=== PATIENT | female | born 1945 | race Caucasian/White ===

== ENCOUNTER 2018-03-29 07:01 | Emergency (ER) | payer MEDICARE, BC ==
[2018-03-29] MEDS ORDERED: Ondansetron 4 MG/2 ML SDV IVPUSH ONE (07:35)
[2018-03-29] MEDS ORDERED: Meclizine 25 MG Tab PO ONE ×2 (07:43→09:17)
[2018-03-29] MEDS ORDERED: Sodium Chloride 0.9% 1,000 ML IV SCH (07:45)
--- NOTE | 2018-03-29 07:48 | EDM.PDOC ---
ED HPI GENERAL MEDICAL PROBLEM - General Chief Complaint: Gastrointestinal Problem Stated Complaint: DIZZY VOMITING Time Seen by Provider: 03/29/18 07:44 Source of Information: Reports: Patient History Limitations: Reports: No Limitations - History of Present Illness INITIAL COMMENTS - FREE TEXT/NARRATIVE: pt woke up yesterday and she was nauseated and she vomited a number of times. She did have some loose stools. She did note a small amount of blood in the one bowel movement and it has been normal since that time. Onset: Today, Sudden Duration: Hour(s): Location: Reports: Head, Other (pt is having vertigo. ) Associated Symptoms: Reports: Nausea/Vomiting, Other (vertigo.) - Related Data Allergies Allergy/AdvReac Type Severity Reaction Status Date / Time No Known Allergies Allergy Verified 03/29/18 07:25 Home Meds: Home Meds Metoprolol Succinate 25 mg PO DAILY 03/29/18 [History] Multivitamin [Multivitamins] 1 tab PO DAILY 03/29/18 [History] Omeprazole 20 mg PO ASDIRECTED 03/29/18 [History] Simvastatin [Zocor] 10 mg PO DAILY 03/29/18 [History] Past Medical History Cardiovascular History: Reports: High Cholesterol, Hypertension Gastrointestinal History: Reports: GERD Musculoskeletal History: Reports: Arthritis - Past Surgical History HEENT Surgical History: Reports: Tonsillectomy GI Surgical History: Reports: Colonoscopy Social & Family History - Tobacco Use Smoking Status *Q: Never Smoker - Caffeine Use Caffeine Use: Reports: Tea - Recreational Drug Use Recreational Drug Use: No ED ROS GENERAL - Review of Systems Review Of Systems: See Below Constitutional: Reports: No Symptoms HEENT: Reports: No Symptoms Respiratory: Reports: No Symptoms Cardiovascular: Reports: No Symptoms Endocrine: Reports: No Symptoms GI/Abdominal: Reports: Diarrhea, Nausea, Vomiting : Reports: No Symptoms Musculoskeletal: Reports: No Symptoms Skin: Reports: No Symptoms Neurological: Reports: Other ( vertigo.) Psychiatric: Reports: No Symptoms ED EXAM, GI/ABD - Physical Exam Exam: See Below Text/Narrative:: pt arrived having vertigo and vomiting. This started suddenly yesterday. Exam Limited By: No Limitations General Appearance: Alert, Anxious, Mild Distress, Other (pupils equal and reactive. ) Ears: Normal TMs Nose: Normal Inspection Throat/Mouth: Normal Inspection Head: Atraumatic Neck: Normal Inspection Respiratory/Chest: No Respiratory Distress Cardiovascular: Regular Rate, Rhythm GI/Abdominal Exam: Soft, Non-Tender Rectal (Female) Exam: Deferred Back Exam: Normal Inspection Extremities: Normal Capillary Refill Neurological: Oriented, Normal Cognition Psychiatric: Normal Affect Course - Vital Signs Last Recorded V/S: Last Vital Signs Temp 35.4 C 03/29/18 09:00 Pulse 80 03/29/18 09:00 Resp 16 03/29/18 09:00 BP 130/53 L 03/29/18 09:00 Pulse Ox 100 03/29/18 09:00 Orthostatic Blood Pressure [] 126/71 Orthostatic Blood Pressure [] 131/69 Orthostatic Blood Pressure [] 135/65 - Orders/Labs/Meds Orders: Active Orders 24 hr Category Date Time Status Orthostatic Vital Signs [RC] ASDIRECTED Care 03/29/18 09:18 Ordered UA W/MICROSCOPIC [URIN] Urgent Lab 03/29/18 08:20 Ordered Sodium Chloride 0.9% [Normal Saline] 1,000 ml Med 03/29/18 07:45 Active IV ASDIRECTED Medication Orders Sodium Chloride (Normal Saline) 1,000 mls @ 999 mls/hr IV ASDIRECTED DANNY Last Admin: 03/29/18 07:49 Dose: 999 mls/hr Labs: Laboratory Tests 03/29/18 03/29/18 03/29/18 Range/Units 07:37 07:37 08:20 WBC 9.3 (4.5-11.0) K/uL RBC 5.18 (3.30-5.50) M/uL Hgb 15.1 H (12.0-15.0) g/dL Hct 45.5 (36.0-48.0) % MCV 88 (80-98) fL MCH 29 (27-31) pg MCHC 33 (32-36) % Plt Count 294 (150-400) K/uL Neut % (Auto) 76 H (36-66) % Lymph % (Auto) 16 L (24-44) % [place] % (Auto) 7 H (2-6) % Eos % (Auto) 0 L (2-4) % Baso % (Auto) 0 (0-1) % Sodium 142 (140-148) mmol/L Potassium 3.5 L (3.6-5.2) mmol/L Chloride 104 (100-108) mmol/L Carbon Dioxide 25 (21-32) mmol/L Anion Gap 16.5 H (5.0-14.0) mmol/L BUN 16 (7-18) mg/dL Creatinine 1.1 H (0.6-1.0) mg/dL Est Cr Clr Drug Dosing 36.56 mL/min Estimated GFR (MDRD) 49 L (>60) Glucose 168 H (74-106) mg/dL Calcium 9.0 (8.5-10.1) mg/dL Total Bilirubin 0.6 (0.2-1.0) mg/dL AST 22 (15-37) U/L ALT 32 (12-78) U/L Alkaline Phosphatase 85 (46-116) U/L C-Reactive Protein 0.34 H (0.0-0.3) mg/dL Total Protein 7.1 (6.4-8.2) g/dL Albumin 3.8 (3.4-5.0) g/dL Globulin 3.3 (2.3-3.5) g/dL Albumin/Globulin Ratio 1.2 (1.2-2.2) Urine Color Yellow Urine Appearance Slightly cloudy Urine pH 5.0 (4.5-8.0) Ur Specific [place] 1.030 (1.008-1.030) Urine Protein Negative (NEGATIVE) mg/dL Urine Glucose (UA) Normal (NEGATIVE) mg/dL Urine Ketones 50 H (NEGATIVE) mg/dL Urine Occult Blood Negative (NEGATIVE) Urine Nitrite Negative (NEGATIVE) Urine Bilirubin Small (NEGATIVE) Urine Urobilinogen Normal (NORMAL) mg/dL Ur Leukocyte Esterase Negative (NEGATIVE) Urine RBC Not seen (0-5) Urine WBC 0-5 (0-5) Ur Epithelial Cells Rare Amorphous Sediment Rare Urine Bacteria Moderate Urine Mucus Moderate Meds: Medications Generic Name Dose Route Start Last Admin Trade Name Freq PRN Reason Stop Dose Admin Sodium Chloride 1,000 mls @ 999 mls/hr 03/29/18 07:45 03/29/18 07:49 Normal Saline IV 999 mls/hr ASDIRECTED DANNY Administration Discontinued Medications Generic Name Dose Route Start Last Admin Trade Name Freq PRN Reason Stop Dose Admin Meclizine HCl 25 mg 03/29/18 07:43 03/29/18 07:55 Antivert PO 03/29/18 07:44 25 mg ONETIME ONE Administration Meclizine HCl 12.5 mg 03/29/18 09:17 03/29/18 09:34 Antivert PO 03/29/18 09:18 12.5 mg ONETIME ONE Administration Ondansetron HCl 4 mg 03/29/18 07:35 03/29/18 07:55 Zofran IVPUSH 03/29/18 07:36 4 mg ONETIME ONE Administration - Re-Assessments/Exams Free Text/Narrative Re-Assessment/Exam: 03/29/18 11:32 lab work and cat scan of the head was normal. She did have a bs of 168 that should be rechecked. Departure - Departure Time of Disposition: 11:33 Disposition: Home, Self-Care 01 Condition: Fair Clinical Impression: Inner ear dysfunction - Discharge Information Referrals: Martha Snow DO [Primary Care Provider] - Forms: ED Department Discharge Care Plan Goals: send a copy of the head scan report, and her labs with her, zoforan 4,g subling q6h prn for nausea, antivert 25 mg tid for the next 3 days then prn. Low activity for thenext 2 days. - My Orders Last 24 Hours: My Active Orders 03/29/18 07:45 Sodium Chloride 0.9% [Normal Saline] 1,000 ml IV ASDIRECTED 03/29/18 08:20 UA W/MICROSCOPIC [URIN] Urgent 03/29/18 09:18 Orthostatic Vital Signs [RC] ASDIRECTED - Assessment/Plan Last 24 Hours: My Active Orders 03/29/18 07:45 Sodium Chloride 0.9% [Normal Saline] 1,000 ml IV ASDIRECTED 03/29/18 08:20 UA W/MICROSCOPIC [URIN] Urgent 03/29/18 09:18 Orthostatic Vital Signs [RC] ASDIRECTED
--- NOTE | 2018-03-29 11:14 | CT ---
Head wo Cont HISTORY: Vertigo COMPARISON: None TECHNIQUE: Noncontrast enhanced axial cuts were obtained of the brain. FINDINGS:There is no cerebral or subdural hemorrhage. There is no mass effect or edema. The ventricle s and CSF spaces are appropriate for age. No space occupying lesions are demonstrated. The orbital st ructures are unremarkable. No acute inflammatory changes of the sinuses are demonstrated. The mastoid air cells demonstrate normal aeration. IMPRESSION: 1. No acute findings.
== END 2018-03-29 11:54 | disposition home or self-care (01) ==
LOC: JP.ED 07:01
DX: H83.2X9 Labyrinthine dysfunction, unspecified ear (principal); I10 Essential (primary) hypertension; E78.00 Pure hypercholesterolemia, unspecified; K21.9 Gastro-esophageal reflux disease without esophagitis; Z79.899 Other long term (current) drug therapy
CPT/HCPCS: 36415; 70450; 80053; 81001; 85025; 86140; 96361; 96374; 99284; A9270; J2405; J7040

== ENCOUNTER 2021-06-02 09:39 | Emergency (ER) | payer MEDICARE, BC ==
[2021-06-02] MEDS ORDERED: Sodium Chloride 0.9% 10 ML Syringe FLUSH PRN (09:54)
[2021-06-02] MEDS ORDERED: Aspirin 81 MG Tab.Chew PO ONE (09:56)
--- NOTE | 2021-06-02 09:57 | EDM.PDOC ---
ED HPI GENERAL MEDICAL PROBLEM - General Chief Complaint: Chest Pain Stated Complaint: CHEST PAIN AND BACK PAIN Time Seen by Provider: 06/02/21 09:56 Source of Information: Reports: Patient, Old Records History Limitations: Reports: No Limitations - History of Present Illness INITIAL COMMENTS - FREE TEXT/NARRATIVE: 76 yo female with no significant pHx, but a strong FHx of CAD presents with some chest and back tightness. Sx's began yesterday and returned after she was up and about this AM. No SOB, nausea or diaphoresis. States that her HR is usually mid 60's at rest and her BP is in the normal range. No smoking. Here with her . Onset: Gradual Onset Date: 06/01/21 Duration: Hour(s):, Waxing/Waning Location: Reports: Chest Quality: Reports: Pressure Severity: Mild Improves with: Reports: Rest Worsens with: Reports: Movement Context: Reports: Other (See HPI) Associated Symptoms: Reports: Chest Pain. Denies: Diaphoresis, Nausea/Vomiting, Shortness of Breath Treatments FACILITIES COORDINATOR: Reports: Other (see below) (none) Chest Pain Score (Numeric/FACES): 6 - Related Data Allergies Allergy/AdvReac Type Severity Reaction Status Date / Time atorvastatin [From Lipitor] Allergy Cannot Verified 06/02/21 09:51 Remember Home Meds: Home Meds Metoprolol Succinate 25 mg PO DAILY 03/29/18 [History] Multivitamin [Multivitamins] 1 tab PO DAILY 03/29/18 [History] Omeprazole 20 mg PO ASDIRECTED 03/29/18 [History] Simvastatin [Zocor] 10 mg PO DAILY 03/29/18 [History] Fish Oil/[place]-3 Fatty Acids [Fish Oil 1,000 MG] 1 tab PO DAILY 06/02/21 [History] Past Medical History Cardiovascular History: Reports: High Cholesterol, Hypertension Gastrointestinal History: Reports: GERD Musculoskeletal History: Reports: Arthritis Neurological History: Reports: Vertigo - Past Surgical History HEENT Surgical History: Reports: Tonsillectomy GI Surgical History: Reports: Colonoscopy Neurological Surgical History: Reports: Discectomy Social & Family History - Tobacco Use Tobacco Use Status *Q: Never Tobacco User - Caffeine Use Caffeine Use: Reports: Tea - Recreational Drug Use Recreational Drug Use: No ED ROS GENERAL - Review of Systems Review Of Systems: See Below Constitutional: Reports: No Symptoms HEENT: Reports: No Symptoms Respiratory: Reports: No Symptoms Cardiovascular: Reports: Chest Pain Endocrine: Reports: No Symptoms GI/Abdominal: Reports: No Symptoms : Reports: No Symptoms Musculoskeletal: Reports: Back Pain Skin: Reports: No Symptoms Neurological: Reports: No Symptoms ED EXAM, GENERAL - Physical Exam Exam: See Below Exam Limited By: No Limitations General Appearance: Alert, WD/WN, No Apparent Distress Eye Exam: Bilateral Eye: Normal Inspection Ears: Normal External Exam, Normal Canal, Hearing Grossly Normal Ear Exam: Bilateral Ear: Auricle Normal, Canal Normal Nose: Normal Inspection, No Blood Throat/Mouth: Normal Inspection, Normal Lips, Normal Oropharynx, Normal Voice, No Airway Compromise Head: Atraumatic, Normocephalic Neck: Normal Inspection Respiratory/Chest: No Respiratory Distress, Lungs Clear, Normal Breath Sounds, No Accessory Muscle Use, Chest Non-Tender Cardiovascular: Regular Rate, Rhythm, No Edema, Tachycardia GI/Abdominal: Normal Bowel Sounds, Soft, Non-Tender, No Distention. No: Distended Back Exam: Normal Inspection. No: CVA Tenderness (R), CVA Tenderness (L) Extremities: Normal Inspection, Normal Range of Motion, Non-Tender, No Pedal Edema. No: Pedal Edema, Billy's Sign Neurological: Alert, Oriented, CN II-XII Intact, Normal Cognition, No Motor/Sensory Deficits Psychiatric: Normal Affect, Normal Mood Skin Exam: Warm, Dry, Intact, Normal Color, No Rash #1 Interpretation EKG Date: 06/02/21 Time: 09:45 Rhythm: NSR Rate (Beats/Min): 113 [place]: Normal P-Wave: Present QRS: Normal ST-T: Normal QT: Normal Comparison: NA - No Prior EKG Course - Vital Signs Text/Narrative:: [facility] called @ 1301h, Last Recorded V/S: Last Vital Signs Temp 35.5 C L 06/02/21 09:48 Pulse 81 06/02/21 16:05 Resp 19 06/02/21 16:05 BP 131/57 L 06/02/21 16:05 Pulse Ox 94 L 06/02/21 16:05 - Orders/Labs/Meds Labs: Laboratory Tests 06/02/21 06/02/21 06/02/21 Range/Units 10:02 10:05 10:05 WBC 7.4 (4.5-11.0) K/uL RBC 5.29 (3.30-5.50) M/uL Hgb 15.3 H (12.0-15.0) g/dL Hct 48.0 (36.0-48.0) % MCV 91 (80-98) fL MCH 29 (27-31) pg MCHC 32 (32-36) % Plt Count 269 (150-400) K/uL D-Dimer, Quantitative (0.0-500.0) ng/mL Sodium 141 (140-148) mmol/L Potassium 4.1 (3.6-5.2) mmol/L Chloride 104 (100-108) mmol/L Carbon Dioxide 26 (21-32) mmol/L Anion Gap 11.3 (5.0-14.0) mmol/L BUN 20 H (7-18) mg/dL Creatinine 1.2 H (0.6-1.0) mg/dL Est Cr Clr Drug Dosing 32.04 mL/min Estimated GFR (MDRD) 44 L (>60) Glucose 162 H (74-106) mg/dL Hemoglobin A1c 6.3 H (4.5-6.2) % Calcium 9.3 (8.5-10.1) mg/dL Troponin I < 0.017 (0.000-0.056) ng/mL 06/02/21 06/02/21 Range/Units 10:05 12:08 WBC (4.5-11.0) K/uL RBC (3.30-5.50) M/uL Hgb (12.0-15.0) g/dL Hct (36.0-48.0) % MCV (80-98) fL MCH (27-31) pg MCHC (32-36) % Plt Count (150-400) K/uL D-Dimer, Quantitative 201.55 (0.0-500.0) ng/mL Sodium (140-148) mmol/L Potassium (3.6-5.2) mmol/L Chloride (100-108) mmol/L Carbon Dioxide (21-32) mmol/L Anion Gap (5.0-14.0) mmol/L BUN (7-18) mg/dL Creatinine (0.6-1.0) mg/dL Est Cr Clr Drug Dosing mL/min Estimated GFR (MDRD) (>60) Glucose (74-106) mg/dL Hemoglobin A1c (4.5-6.2) % Calcium (8.5-10.1) mg/dL Troponin I 0.289 H* (0.000-0.056) ng/mL Meds: Medications Discontinued Medications Generic Name Dose Route Start Last Admin Trade Name Freq PRN Reason Stop Dose Admin Aspirin 324 mg 06/02/21 09:56 06/02/21 10:08 Aspirin 81 Mg Tab.Chew PO 06/02/21 09:57 324 mg ONETIME ONE Administration Heparin Sodium (Porcine) 4,000 units 06/02/21 12:53 06/02/21 13:25 Heparin Sodium 5,000 Units/Ml Vial IVPUSH 06/02/21 12:54 4,000 units ONETIME ONE Administration Lactated Ringer's 1,000 mls @ 1,000 mls/hr 06/02/21 11:12 06/02/21 11:19 Ringers, Lactated IV 06/02/21 12:11 1,000 mls/hr BOLUS ONE Administration Heparin Sodium/Dextrose 25,000 units in 500 mls @ 18 mls/hr 06/02/21 13:00 06/02/21 13:29 Heparin 25,000 Units In D5w 500 Ml IV 900 units/hr TITRATE DANNY 18 mls/hr Administration 900 UNITS/HR Metoprolol Tartrate 50 mg 06/02/21 10:02 06/02/21 10:08 Metoprolol Tartrate 50 Mg Tab PO 06/02/21 10:03 50 mg ONETIME ONE Administration Nitroglycerin 0.4 mg 06/02/21 10:02 06/02/21 10:10 Nitroglycerin 0.4 Mg Tab.Sl SL 0.4 mg Q5M PRN Administration Chest Pain Sodium Chloride 10 ml 06/02/21 09:54 06/02/21 10:04 Sodium Chloride 0.9% 10 Ml Syringe FLUSH 10 ml ASDIRECTED PRN Administration Keep Vein Open Ticagrelor 180 mg 06/02/21 12:53 06/02/21 13:27 Ticagrelor 90 Mg Tab PO 06/02/21 12:54 180 mg ONETIME ONE Administration Departure - Departure Time of Disposition: 18:10 Disposition: DC/Tfer to Acute Hospital 02 Reason for Transfer *Q: Other Condition: Serious Clinical Impression: Non-ST elevated myocardial infarction Referrals: Martha Snow DO [Primary Care Provider] - Forms: ED Department Discharge Sepsis Event Note (ED) - Evaluation Sepsis Screening Result: No Definite Risk
[2021-06-02] MEDS ORDERED: Metoprolol Tartrate 50 MG Tab PO ONE (10:02)
[2021-06-02] MEDS ORDERED: Nitroglycerin 0.4 MG Tab.SL SL PRN (10:02)
[2021-06-02] MEDS ORDERED: Lactated Ringers 1,000 ML IV ONE (11:12)
[2021-06-02] MEDS ORDERED: Heparin Sodium 5,000 Units/ML Vial IVPUSH ONE (12:53)
[2021-06-02] MEDS ORDERED: Ticagrelor 90 MG Tab PO ONE (12:53)
[2021-06-02] MEDS ORDERED: Heparin Sodium/D5W 25,000 UNITS/500 ML BAG IV SCH (13:00)
[2021-06-02 16:38] LABS: HEMOGLOBIN A1C 6.3 % (4.5-6.2)
== END 2021-06-02 16:55 ==
LOC: JP.ED 09:39
DX: I21.4 Non-ST elevation (NSTEMI) myocardial infarction (principal); E78.00 Pure hypercholesterolemia, unspecified; I10 Essential (primary) hypertension; K21.9 Gastro-esophageal reflux disease without esophagitis; Z79.899 Other long term (current) drug therapy; Z88.8 Allergy status to other drugs, medicaments and biological substances
CPT/HCPCS: 36415; 80048; 83036; 84484; 85027; 85379; 93005; 96365; 96366; 99285; A9270; J1644; J7120

== ENCOUNTER 2022-06-26 15:59 | Observation (INO) | payer MEDICARE, BC ==
[2022-06-26] MEDS ORDERED: Ondansetron 4 MG/2 ML SDV IVPUSH ONE (18:01)
[2022-06-26] MEDS ORDERED: Sodium Chloride 0.9% 10 ML Syringe FLUSH PRN (18:01)
[2022-06-26] MEDS ORDERED: HYDROmorphone 0.5 MG/0.5 ML Syringe IVPUSH ONE (18:01)
[2022-06-26 18:37] LABS: ESTIMATED GFR 58 mL/min (>60)
[2022-06-26] MEDS ORDERED: Iopamidol 612 MG/ML 100 ML Bottle IV PRN (19:13)
[2022-06-26] MEDS ORDERED: Sodium Chloride 0.9% 100 ML IV SCH (19:15)
[2022-06-26] MEDS ORDERED: Ampicillin/Sulbactam Na 3 GM in Sodium Chloride 0.9% 100 ML IV ONE (20:22)
[2022-06-26] MEDS ORDERED: Lactated Ringers 1,000 ML IV SCH ×2 (21:00→22:59)
[2022-06-26] MEDS: Piperacillin/Tazobactam 3.375 GM in Sodium Chloride 0.9% 50 ML IV SCH (21:44)
[2022-06-26] MEDS ORDERED: Magnesium Hydroxide 400 MG/5 ML Susp 30 ML Cup PO PRN (22:59)
[2022-06-26] MEDS: Acetaminophen 325 MG Tab PO PRN (23:30)
[2022-06-26] MEDS: Pravastatin 20 MG Tab PO SCH (23:31)
[2022-06-26] MEDS: Metoprolol Tartrate 25 MG Tab PO SCH (23:31)
[2022-06-26] MEDS ORDERED: Ondansetron 4 MG Tab.DIS PO PRN (23:59)
[2022-06-26] MEDS ORDERED: HYDROmorphone 0.5 MG/0.5 ML Syringe IVPUSH PRN (23:59)
[2022-06-26] MEDS ORDERED: Ondansetron 4 MG/2 ML SDV IV PRN (23:59)
[2022-06-27] MEDS: Piperacillin/Tazobactam 3.375 GM in Sodium Chloride 0.9% 50 ML IV SCH (03:34)
[2022-06-27] MEDS: Acetaminophen 325 MG Tab PO PRN (03:34)
[2022-06-27] MEDS ORDERED: Bupivacaine 0.25%/EPINEPHrine 1:200,000 30 ML SDV ONE (07:09)
[2022-06-27] MEDS ORDERED: Hydrogen Peroxide 3% Top Soln 240 ML Bottle ONE (07:10)
[2022-06-27] MEDS ORDERED: fentaNYL 250 MCG/5 ML SDV ONE (07:40)
[2022-06-27] MEDS ORDERED: Rocuronium 50 MG/5 ML Vial ONE (07:41)
[2022-06-27] MEDS ORDERED: Dexamethasone 4 MG/ML SDV ONE (07:41)
[2022-06-27] MEDS ORDERED: Glycopyrrolate 0.2 MG/ML 5 ML MDV ONE (07:41)
[2022-06-27] MEDS ORDERED: Ondansetron 4 MG/2 ML SDV ONE (07:41)
[2022-06-27] MEDS ORDERED: Propofol 200 MG/20 ML SDV ONE (07:41)
[2022-06-27] MEDS ORDERED: Neostigmine Methylsulfate 1 MG/ML 5 ML Syringe ONE (07:41)
[2022-06-27] MEDS ORDERED: ceFAZolin 2 GM in Premix Bag 1 BAG IV ONE (08:00)
[2022-06-27] MEDS ORDERED: Piperacillin/Tazobactam/Dext 3.375 GM in Premix Bag 1 BAG IV SCH (09:00)
[2022-06-27] MEDS: Metoprolol Tartrate 25 MG Tab PO SCH ×2 (11:01→20:11)
[2022-06-27] MEDS: Lactobacillus Rhamnosus GG (Probiotic) Cap PO SCH ×2 (11:02→20:11)
[2022-06-27] MEDS: Aspirin 81 MG Tab.EC PO SCH (11:02)
[2022-06-27] MEDS: Simethicone 125 MG Tab.Chew PO SCH ×3 (11:02→22:25)
[2022-06-27] MEDS: Acetaminophen/oxyCODONE 325-7.5 MG Tab PO PRN ×2 (12:18→18:46)
[2022-06-27] MEDS ORDERED: Pantoprazole 40 MG Tab.CR PO SCH (16:00)
[2022-06-27] MEDS: Pravastatin 20 MG Tab PO SCH (20:11)
[2022-06-27] MEDS: Docusate Sodium 100 MG Cap PO SCH (20:11)
[2022-06-28] MEDS: Simethicone 125 MG Tab.Chew PO SCH ×2 (04:25→11:20)
[2022-06-28] MEDS: Acetaminophen/oxyCODONE 325-7.5 MG Tab PO PRN (04:45)
[2022-06-28] MEDS: Docusate Sodium 100 MG Cap PO SCH (08:56)
[2022-06-28] MEDS: Metoprolol Tartrate 25 MG Tab PO SCH (08:57)
[2022-06-28] MEDS: Lactobacillus Rhamnosus GG (Probiotic) Cap PO SCH (08:57)
[2022-06-28] MEDS: Aspirin 81 MG Tab.EC PO SCH (09:00)
== END 2022-06-28 11:20 | disposition home or self-care (01) ==
LOC: JP.ED 15:59 → JP.MS 21:14
PROVIDERS: ADMIT Internal Medicine; ATTEND Hospitalist
DX: K35.30 Acute appendicitis with localized peritonitis, without perforation or gangrene (principal); I10 Essential (primary) hypertension; E78.00 Pure hypercholesterolemia, unspecified; I25.10 Atherosclerotic heart disease of native coronary artery without angina pectoris; K21.9 Gastro-esophageal reflux disease without esophagitis; Z95.5 Presence of coronary angioplasty implant and graft; Z79.82 Long term (current) use of aspirin; Z79.899 Other long term (current) drug therapy; Z88.8 Allergy status to other drugs, medicaments and biological substances; Z98.890 Other specified postprocedural states; Z20.822 Contact with and (suspected) exposure to COVID-19; Z79.83 Long term (current) use of bisphosphonates; Z79.810 Long term (current) use of selective estrogen receptor modulators (SERMs); Z79.891 Long term (current) use of opiate analgesic
CPT/HCPCS: 36415; 44970; 74177; 80053; 81001; 85025; 86140; 93005; 96365; 96366; 96367; 96375; 99285; A9270; G0378; J0295; J0690; J1100; J1170; J1790; J2405; J2543; J2704; J2710; J3010; J3490; J7120; Q9967; U0002